=== PATIENT | female | born 1945 | race Caucasian/White ===

== ENCOUNTER 2024-02-23 07:15 | Day surgery (SDC) | payer OTHER, SELFPAY ==
[2024-02-14 08:01] VITALS: BMI 35.2
[2024-02-23] VITALS (24 sets, daily range): BP systolic 103–133; BP diastolic 55–80; PULSE 75–98; RESP 14–20; TEMP 35.7–36.9; O2SAT 90–98; BMI 34.4; BMI 38.3; BMI 37.3
--- NOTE | 2024-02-23 06:00 | DI.RAD.S_ITS ---
PROCEDURE: XR KNEE RT 1TO2V INDICATIONS: TKA TECHNIQUE: 2 view(s) of the knee acquired. COMPARISON: None. FINDINGS: Bones: Patient is status post knee joint arthroplasty. Hardware components are in expected positions. Visualized bony structures are intact. Soft tissues: Overlying postoperative changes are noted. IMPRESSION: Expected post-operative appearance of a knee arthroplasty. Dictated by: Chica Katz M.D. on 02/23/2024 at 12:56 Approved by: Chica Katz M.D. on 02/23/2024 at 12:56
--- NOTE | 2024-02-23 07:45 | SUR.OPER ---
Supine on padded OR bed. Pillow under head, arms secured on padded armboards <90 degree abduction. Safety belt across torso. Non-operative leg secured with tape over blanket over lower leg. Operative leg secured in DeMayo positioner. Foam padded brace at thigh of operative leg.
[2024-02-23] MEDS: ACETAMINOPHEN 325 MG TABLET 975 MG PO (08:01)
[2024-02-23] MEDS: CELECOXIB 200 MG CAPSULE PO (08:01)
--- NOTE | 2024-02-23 08:04 | PM.PREOP ---
Pre-operative Note Interval Note History & Physical reviewed/Exam performed by Physician: Yes Changes to H&P: No
--- NOTE | 2024-02-23 08:18 | P.OP_ITS ---
Operative Date/Time/Diagnoses Date of procedure: 02/23/24 Time of procedure: 09:00 Pre-op diagnosis: Right knee arthritis Post-op diagnosis: same Procedure & Clinicians Procedure: Total knee arthroplasty, right CPT code 03818 Robotic assisted surgery [id number] Computer navigation assisted surgery [id number] Same procedure as scheduled: Yes Indications: The patient is a 78 with end-stage [id number] right knee arthritis. The patient has a significant right knee arthritis. Condition was exacerbated after a knee dislocation sustained a industrial injury. They have failed conservative treatment with activity modifications, injections, physical therapy and bracing. They has been indicated for total knee replacement. The risks and benefits of the procedure have been discussed with the patient even opportunity to ask questions. The risks of surgery include but are not limited to infection, malunion, nonunion, fracture, loosening, persistence of pain, damage to nerves and blood vessels, need for additional procedures, DVT, PE, cardiopulmonary complications and . The patient expressed a thorough understanding of the risks and benefits of surgery and has elected to proceed. Consent was signed in the office. During the operation the services of physician surgical asst were medically indicated and necessary to provide the exposure of the operative site for the surgical procedure and to maintain the limb in a proper position to carry out the procedure safely and efficiently. Without a qualified computer lab assistant being present this would extend the operative procedure and would have made the procedure more technically difficult to perform. The surgical asst was medically necessary for the proper positioning, retraction and manipulation of the limb, proper exposure, and manipulation of the tissue for implantation implants and closure. Surgeon: Marni Marquez Reverberatory Furnace Operator: Junito Snider Anesthesia Type: General, Spinal and Local Operative Notes Findings: Tricompartmental knee arthritis full-thickness cartilage loss patellofemoral medial and lateral compartments. Large osteophytes. Right knee flattened trochlear groove. Complete eburnation of bone of the patellofemoral joint. Closure Type: primary Prosthetic devices, grafts, tissues, transplants, or devices: Licea and Nephew journey 2 bcs Femur cobalt chromium size 5 Tibia size 4 Patella 35 x 7.5 Poly 11 mm Estimated Blood Loss (mL): 30 Blood products transfused: none Tourniquet time (min): 75 Procedure in detail: Patient was seen in the preoperative area where the patient and site of surgery were identified in the operative knee was marked informed consent confirmed. This was the right knee. Patient received the appropriate preoperative antibiotics this was 2 g of Ancef. And other preoperative medications and was taken to the operating room placed on operating table in the supine position. Spinal anesthetic were administered. The operative extremity was then prepped and draped in the standard sterile fashion with a nonsterile tourniquet high on the thigh. Patient was placed on the green foam bolsters. A lateral post was placed at the level of the proximal thigh /trochanter area as a lateral post. Formal time-out procedure was performed confirming the patient's side and site of surgery and administration of appropriate preoperative antibiotics and implants were in the room accounted for. All were in agreement. Patient received a preoperative dose of tranexamic acid and then a 2nd dose at tourniquet release Patient was prepped and draped in the standard sterile fashion and the foot was placed into the leg rodríguez. This was taken into high flexion and the incision was marked out over the anterior knee to the level of the medial tubercle tubercle. The Esmarch was then used for exsanguination and the tourniquet was inflated to 250 mmHg. Was made through the skin and subcutaneous tissue in high flexion this was then brought down into 30? of flexion for the medial parapate llar arthrotomy. A marker pen was used to steffany the arthrotomy site for later repair. Joint fluid was evacuated. The anterior osteophytes and soft tissues were removed. Routine medial release was initially made along the medial proximal tibia with Bovie. The patella was 1st cut using the saw sized and prepped and then subluxed throughout the case and protected. The leg was then taken into extension and the patella was everted and the patella was cut to accommodate the patellar button. This was sized to a 35 mm button for a 7.5 mm thickness to recreate the original dimensions of the patella. Poly was removed and the protector replaced and the patella was subluxed and the knee was taken back up into flexion and attention was returned to the femur. Then the rotational landmarks of Whitesides line and the trans epicondylar axis were marked on the femur with electrocautery. ACL and PCL were released. Then the Cori robotic pins were placed into the femur and tibia and the trackers set up. Landmarks were established and the robotic planning was commenced. Plan was developed and improved and adjusted as necessary to create a balanced knee. Preoperative alignment was 0? postoperative alignment was planned for 0?. External rotation of the distal femur 5? was used for balancing and tracking. And the knee was balanced with resections the 1-2 mm medial and lateral compart ments. Plan was satisfactory the bur was used to remove the distal femur Attention was then turned to the tibia and the tibial resection was made in accordance with the robotic planning. Then the 5 in 1 cutting block for the distal femur was used. The trials were placed. And the femoral notch was cut a standard fashion using Reamer then slap hammer. The knee was trialed and the checked. Knee was balanced in flexion extension. Range of motion 0-135 degrees was obtained. The rotation femoral trial was marked Bovie on the bone and checked with a long hailey. The tibia was then finished with a drill and flange cut and then The trial implants were removed. Then in extension the posterior capsule was injected with a mixture of 40 mL of 0.25% Marcaine and 20 mL of Exparel 266 mg, care was taken to avoid excessive injection posterior laterally. The remainder of this was saved for the capsule and subcutaneous tissue and placed during cement curing. The wound and bone was irrigated with pulsatile lavage. This was then dried with a sponge. The components were verified and opened and the cement was mixed. Cement was applied to the components and then to the bone then the tibia was cemented in place 1st followed by the femur then the patella. Excess cement was removed. With care looking around the back of the knee. Remainder of the injection was injected around the capsule. trial poly was placed back in the leg was placed into extension for the patellar cementing. After this was cured approximately 15 minutes later and the dilute Betadine solution was placed for at least 3 minutes in the wound this was then irrigated out and the final poly was placed. This was a 11 mm poly. The tourniquet was released hemostasis was achieved. Final 1g of tranexamic acid was given IV at the time of tourniquet release. The capsule was closed with 1. Ethibond suture. Followed by a running Quill stitch. Subcutaneous layer was closed with 3-0 Vicryl suture. Skin was closed with a running V lock suture Stratafix Monocryl type suture and Dermabond. An Aquacel dressing was placed . An Jesse wrap was applied. Anesthetic was terminated the patient was woken from anesthesia and taken to recovery room in good condition. There no immediate complications from this procedure. The patient will be maintained on a standard total knee replacement protocol with weight-bearing as tolerated. Complications: none Post-operative Condition: stable Disposition: PACU Plan for aftercare: Standard postop total knee instructions. Weightbear as tolerated. Use assistive devices. Aspirin 81 mg b.i.d. for DVT prophylaxis x6 weeks. Follow u p in [facility]opedic [facility] in 2 weeks for wound check. We will commence physical therapy outpatient within 1 week.
[2024-02-23] MEDS: LACTATED RINGERS 1,000 ML 42 ML IV (08:27)
--- NOTE | 2024-02-23 08:42 | SUR.PREOP ---
Block start time 0837 . Monitoring initiated and maintained throughout procedure. Oxygen and medications given per anesthesiologist instructions. Patient remained stable throughout procedure, no adverse reactions noted. Block end time 0840.
[2024-02-23] MEDS: TRANEXAMIC ACID 1,000 MG VIAL 2000 MG INJ ×2 (09:05→10:41)
[2024-02-23] MEDS: CEFAZOLIN 2 GM/100 ML PREMIX 100 ML IV ×2 (09:10→16:29)
[2024-02-23] MEDS: BUPIVACAINE LIPOSOME 266 MG/20 ML VIAL INJ (09:27)
[2024-02-23] MEDS: BUPIVACAINE 0.25% W/ EPI 30 ML VIAL 60 ML INJ (09:28)
[2024-02-23] MEDS: ONDANSETRON 4 MG/2 ML INJ IV ×2 (11:39→15:35)
[2024-02-23] MEDS: HYDROCODONE/ACET 5/325 TABLET 1 TAB PO ×2 (12:36→13:20)
[2024-02-23] MEDS: LORazepam 2 MG/ML INJ 0.5 MG IV (12:52)
[2024-02-23] MEDS: fentaNYL 100 MCG/2 ML INJ IV (13:52)
--- NOTE | 2024-02-23 14:07 | SUR.PHASEII ---
Patient reported 7/10 posterior knee pain. Medicated with Fentanyl. Continuous pulse ox in place. Patient reported feeling hot, mildly diaphoretic. BP stable. Temp 97.2.
--- NOTE | 2024-02-23 14:35 | PT.IIE ---
Current Diagnoses Unilateral primary osteoarthritis, right knee (02/23/24) Unspecified dislocation of right patella, subsequent encounter (02/23/24) Surgery Performed Operation Date: 02/23/24 08:45 Actual Procedures p Total Knee Arthroplasty - Robot(Right) - Marni Marquez MD Surgical History (Last Updated 02/14/24 @ 09:29 by Deirdre Tineo, RN) History of ankle surgery (2023) History of bunionectomy of both great toes History of total left knee replacement (~2016) Hx of bilateral cataract extraction (2023) Hx of cholecystectomy (~2000) Hx of LASIK Hx of lithotripsy Hx of tonsillectomy Medical History (Last Updated 02/14/24 @ 09:29 by Deirdre Tineo, RN) Anesthesia complication Depression Diverticulosis Eczema History of COVID-19 (~2020) Mild aortic stenosis Osteoarthritis Physical Therapy Inpatient Evaluation/Re-Eval M1 PT/OT-IP Prior Functional Status Start: 02/23/24 16:49 Freq: NEEDED Status: Active Protocol: Document 02/23/24 14:35 AB (Rec: 02/23/24 17:02 AB [id number]) Medical Review Prior Functional Status Medical History Reviewed Yes Communication able to make needs known Mobility and Gait pt stated that she was indpeendent with all mobiltiies and ambulationf without AD Social History Household Members none Living Arrangements House Number of Floors (Floors) One Floor Number of Stairs To Enter/Railing? 7 steps wide bilateral rails to enter and can only hold on to one rail at a time Home Environment Standard Height Toilet,Walk in Shower,Built-In Shower Seat Home Equipment Front Wheel Walker,Raised Toilet Seat Without Armrests, Hand Held Shower,Grab Bars In Shower Additional Social History Comment pt's brother and hkwhnt-ke-hit plans to stay with pt to assist as long as needed. pt's vzrjen-ie-eed will be assisting pt M2 PT-IP Current Condition Start: 02/23/24 16:49 Freq: NEEDED Status: Active Protocol: Document 02/23/24 14:35 AB (Rec: 02/23/24 17:02 AB [id number]) Physical Therapy Current Condition Current Condition Evaluation Date 02/23/24 Treatment Diagnosis s/p R TKA; difficulty in walking Onset Date 02/23/24 M3 PT-IP Subjective Start: 02/23/24 16:49 Freq: NEEDED Status: Active Protocol: Document 02/23/24 14:35 AB (Rec: 02/23/24 17:02 AB [id number]) Subjective Physical Therapy Visit Type Type Initial Evaluation Visit Start Time 14:35 Visit Stop Time 15:25 Number of FILAMENT MAKER Visits 0 Physical Therapy Visit Comments Patient Comments c/o increase pain Therapy Pain Assessment Pain When Pain Assessed At Rest Pain Present Pain Present Pain Reported Location Right Knee Intensity 5 Scale Used increases 10/10 with movement Pain Behaviors Facial Grimacing,Guarding, Holding Area Pain Management Techniques Apply Cold,Distraction, Elevation,Modification of Treatment,Re-positioning, Timing of Activity with Medications M4 PT-IP Mobility and Gait Start: 02/23/24 16:49 Freq: NEEDED Status: Active Protocol: Document 02/23/24 14:35 AB (Rec: 02/23/24 17:02 [id number]) PT-Bed Mobility Assessment Supine to Sit Supine to Sit Maximum Assistance,1 Person Assistance,Bedrails Sit to Supine Sit to Supine Maximum Assistance,1 Person Assistance,Bedrails Scooting Scooting to Edge of Bed Maximum Assistance PT-Transfer Assessment Sit to and From Stand Sit to and from Stand Maximum Assistance,1 Person Assistance,Use of Upper Extremities Equipment Transfer Assistive Device Gait Belt,Front Wheeled Walker Orthotic/Prosthetic Devices or Brace: No Comments Mobility Comments pt seen in PACU supine in bed. pt c/o increase R knee pain. nurse with pt. nurse stated that pt had pain meds. pt still c/o increase knee pain and worried about moving. nurse stated that the plan is still going home after PT. obtained PLOF and home set up from pt. family in with pt. BP checked: 113/71 O2 sat:99% pt completed supine to sit max A and max cues. educated pt' s JUAQUIN on how to assist pt. pt able to sit on EOB SBA. c/o increase pain and c/o nausea and sweaty. BP checked: 110/ 78. completed sit to stand max A and max cues. pt not putting much weight on RLE and unable to take any steps and c/o increase pain needing to sit back on bed. pt requested to lay back down needing max A for sit to supine. positioned pt in bed. call light within reach. informed nurse regarding pt's mobility and c/o increase knee pain. Gait Assessment Comments Gait Comments unable at this time PT-Balance Assessment Sitting Balance and Reactions Static Sitting Balance Ability Good Dynamic Sitting Balance Ability Good Standing Balance and Reactions Static Standing Balance Ability Poor Dynamic Standing Balance Ability Poor Device Used FWW M5 PT-IP Objective Assessments Start: 02/23/24 16:49 Freq: NEEDED Status: Active Protocol: Document 02/23/24 14:35 AB (Rec: 02/23/24 17:02 [id number]) Orientation Orientation/Cognition Level of Alertness Alert Orientation Name,Place,Situation Language Function Ability No Deficits Noted Safety Awareness Decreased Safety Awareness Memory Description No Deficits Noted Gross Range of Motion Lower Extremity ROM Impairments R knee flexion: ~ 60 deg R knee extensioN: ~ 20 deg less to 0 Strength Lower Extremity Strength Assessment Right Impaired Hip 3+/5 Knee 3+/5 Coordination Assessment Gross Coordination Gross Coordination WNL Sensation Assessment Sensation Gross Sensation WNL Muscle Tone Muscle Tone WNL Yes M6 PT-IP Treatment Start: 02/23/24 16:49 Freq: NEEDED Status: Active Protocol: Document 02/23/24 14:35 AB (Rec: 02/23/24 17:02 [id number]) Physical Therapy Treatment Exercises Exercises Heel Slides Education Education Provided Precautions,Weight Bearing Status,Post-Op Packet,Safety M7 PT-IP Assessment and Plan Start: 02/23/24 16:49 Freq: NEEDED Status: Active Protocol: Document 02/23/24 14:35 AB (Rec: 02/23/24 17:02 [id number]) PT Summary Assessment and Plan Potential Rehabilitation Potential Fair Status of Condition at Evaluation Evolving Summary Impairments Pain,ROM,Strength,Balance, Coordination,Sensation,Tone, Cognition,Bed Mobility, Transfers,Gait,Activity Tolerance Assessment Summary pt is a 78 y/o F s/p R TKA POD 0. pt is WBAT on RLE. pt requiring max A for bed mobility and sit to stand and unable to ambulate at this time. pt with c/o increase R knee pain and unable to tolerate much activity. pt plans to go home and her JUAQUIN will assist her. d/c plan depending on progress. will conduct caregiver training when appropriate. will continue to assess. Goals Bed Mobility Goal Standby Assistance Transfer Goal Standby Assistance,Front Wheeled Walker Gait Goal Standby Assistance,Front Wheel Walker Gait Distance 50 Other Goals improve bed mobility, transfers, ambulation using FWW ~ 200 ft mod I up/down 7 steps 1 rail SBA Days to Meet Goals 5 Frequency of Treatment Frequency Of Treatment Twice a Day Treatment Plan Physical Therapy Treatment Plan Bed Mobility Training,Transfer Training,Gait Training, Therapeutic Exercise,Balance Retraining,Post Op Education, Discharge Planning,Hot or Cold Pack,Neuromuscular Re-ed, Coordination Retraining,Manual Therapy Weight Bearing Status Weight Bearing Status Weight Bear as Tolerated Allowed Weight Bearing Amount (enter % RLE WBAT or #) (%) Recommendations To Nursing Amount of Assist Needed 2 Person Assist Discharge Recommendations PT Discharge Recommendations Home with 31/08 Assist Available,Home Health,SNF Rehab,Home vs SNF Transportation Needs at Discharge Wheelchair/Cabulance
[2024-02-23] MEDS: hydrOXYzine HCL 25 MG TABLET PO (14:42)
--- NOTE | 2024-02-23 14:50 | SUR.PHASEII ---
Patient reported knee pain increasing. Medicated with vistaril.
--- NOTE | 2024-02-23 15:27 | SUR.PHASEII ---
Patient did not pass PT. Dr. Marquez notified.
--- NOTE | 2024-02-23 15:32 | SUR.PHASEII ---
Report called to Vesna Leggett
--- NOTE | 2024-02-23 15:40 | SUR.PHASEII ---
Patient c/o nausea. Medicated with Zofran. Declined Queazease.
--- NOTE | 2024-02-23 16:01 | SUR.PHASEII ---
Patient transferred to the floor with belongings bags x2 and walker. Bedside report given to Jazzy DUMONT stable. Right Knee Dressing CDI.
[2024-02-23] MEDS: HYDROMORPHONE 2 MG TABLET PO ×2 (16:29→22:04)
[2024-02-23] MEDS: LACTATED RINGERS 1,000 ML 100 ML IV (16:30)
--- NOTE | 2024-02-23 17:46 | PC.NURSE ---
Pt to room 204 via bed from PACU. Pt is awake, alert, and oriented. Denies nausea (received Zofran from PACU just prior to coming upstairs), denies shortness of breath but states she is having pain to her right knee 4-5/10. Repositioned Pt in bed, placed ice packs on surgical area, and provided pain medication-reassessed and Pt stated pain was much better. Pt IVF infusing as ordered, SCD's on and running, Bed alarm on for safety. Pt oriented to room, call light, bed controls, and tv controls. Pt agrees to call for assistance as needed and to not get up without assistance.
[2024-02-23] MEDS: ACETAMINOPHEN 325 MG TABLET 650 MG PO (18:13)
[2024-02-23] MEDS: HYDROMORPHONE 0.5 MG INJ IV (19:48)
[2024-02-23] MEDS: SPIRONOLACTONE 25 MG TABLET 100 MG PO (21:15)
[2024-02-23] MEDS: ASPIRIN EC 81 MG TABLET PO (21:16)
[2024-02-23] MEDS: ESCITALOPRAM 10 MG TABLET PO (21:16)
[2024-02-23] MEDS: DOCUSATE 100 MG CAPSULE PO (21:16)
[2024-02-23] MEDS: lisinopriL 10 MG TABLET PO (21:16)
[2024-02-24] MEDS: ACETAMINOPHEN 325 MG TABLET 650 MG PO ×2 (00:47→08:40)
[2024-02-24] MEDS: CEFAZOLIN 2 GM/100 ML PREMIX 100 ML IV (00:48)
[2024-02-24] MEDS: HYDROMORPHONE 2 MG TABLET PO ×4 (02:00→13:53)
[2024-02-24 02:50] VITALS: BP 108/60; PULSE 79; RESP 16; TEMP 36.7; O2SAT 93
[2024-02-24 06:14] LABS: Hematocrit 32.7 % (36-46); Hemoglobin 10.9 g/dL (12.0-16.0)
--- NOTE | 2024-02-24 07:49 | PM.DS.1 ---
History of Present Illness History of Present Illness Chief complaint: Right Total Knee Arthroplasty - Robot Narrative: Jania is a pleasant 78 year old female who is POD#1 s/p R TKA by Dr. Marquez. This morning she reports she is doing okay overall but is having a lot of pain still, despite this she states she would still like to d/c to home today if possible. She does live alone at home but her brother and fragbj-wc-vku live in [place] and will stay nearby to provide assistance as needed. She has prescription for hydrocodone at home already. She states she does not tolerate oxycodone well. She has concerns about pain control after discharge as she is currently getting Dilaudid. Has postop PT set up with [facility]. She has been urinating well without issue. She has been out of bed, she has seen PT already once yesterday. Denies fever, chills, chest pain, SOB, nausea, vomiting. Denies feelings of lightheadedness or dizziness. Denies history of blood clots. Operative Date/Time/Diagnoses Date of procedure: 02/23/24 Time of procedure: 09:00 Pre-op diagnosis: Right knee arthritis Post-op diagnosis: same Procedure & Clinicians Procedure: Total knee arthroplasty, right CPT code 21241 Robotic assisted surgery [id number] Computer navigation assisted surgery 29822 Same procedure as scheduled: Yes Indications: The patient is a 78 with end-stage [id number] right knee arthritis. The patient has a significant right knee arthritis. Condition was exacerbated after a knee dislocation sustained a industrial injury. They have failed conservative treatment with activity modifications, injections, physical therapy and bracing. They has been indicated for total knee replacement. The risks and benefits of the procedure have been discussed with the patient even opportunity to ask questions. The risks of surgery include but are not limited to infection, malunion, nonunion, fracture, loosening, persistence of pain, damage to nerves and blood vessels, need for additional procedures, DVT, PE, cardiopulmonary complications and . The patient expressed a thorough understanding of the risks and benefits of surgery and has elected to proceed. Consent was signed in the office. During the operation the services of physician surgical supplies sterilizer were medically indicated and necessary to provide the exposure of the operative site for the surgical procedure and to maintain the limb in a proper position to carry out the procedure safely and efficiently. Without a qualified baking assistant being present this would extend the operative procedure and would have made the procedure more technically difficult to perform. The surgical supplies sterilizer was medically necessary for the proper positioning, retraction and manipulation of the limb, proper exposure, and manipulation of the tissue for implantation implants and closure. Surgeon: Marni Marquez Mechanical Process Engineer: Junito Snider Anesthesia Type: General, Spinal and Local Operative Notes Discharge Providers Provider Discharge Date: 02/24/24 Primary care physician: Manish Keller DO Consults: 02/23/24 06:00 Consult to Anesthesiology Routine Comment: Consulting Provider: Anesthesiologist Reason for consultation: Regional block for post operative pain control 02/23/24 11:28 Consult to Physical Therapy Evaluate & Treat Comment: Postop total knee replacement same-day surgery Physician Instructions: Evaluate and Treat 02/23/24 15:49 Consult to Discharge Planning Routine Comment: Consult to Occupational Therapy Evaluate & Treat Comment: Physician Instructions: Evaluate and treat Consult to Physical Therapy Evaluate & Treat Comment: Physician Instructions: postop TKA protocol Discharge provider: Rossy Katz PA-C Summary Hospital Course Discharge Diagnosis: Stable status post right total knee arthroplasty Hospital Course: Relatively uncomplicated hospital course Exam Vital Signs (past 8 hours): - 02/24/24 02:50 Temperature 98.0 F Pulse Rate 79 Respiratory Rate 16 Blood Pressure 108/60 Pulse Oximetry 93 Oxygen Flow Rate 0 Oxygen Delivery Method Nasal Cannula Oxygen Flow Rate 0 Narrative Exam Narrative: Patient lying in bed during our interview today. Appears comfortable at rest but grimmaces w/ pain w/ palpation of the knee. No acute distress. AOx3. Grossly normal alignment of the RLE with moderate swelling to the right knee. 5/5 strength with DF, PF, EHL. Able to flex and extend knee slightly but very limited ROM d/t pain. Gross sensation intact throughout bilateral lower extremities. Calves soft and compressible bilaterally. SCDs are on and functioning. Brisk capillary refill. Post-surgical dressing clean, dry and intact over the right knee without drainage. Objective Labs 02/24/24 06:01 Labs: Laboratory Results - last 24 hr 02/24/24 06:01 Hgb 10.9 L Hct 32.7 L PFSH Medical History (Updated 02/14/24 @ 09:29 by Deirdre Tineo RN) History of COVID-19 (~2020) Depression Eczema Osteoarthritis Diverticulosis Anesthesia complication Mild aortic stenosis Surgical History (Updated 02/14/24 @ 09:29 by Deirdre Tineo RN) History of bunionectomy of both great toes History of ankle surgery (2023) Hx of tonsillectomy Hx of lithotripsy Hx of cholecystectomy (~2000) Hx of bilateral cataract extraction (2023) Hx of LASIK History of total left knee replacement (~2016) Social History household members: none Smoking Status: Former smoker alcohol intake: current Discharge Assessment & Plan Assessment and Plan Plan of Treatment: 1) Plan to discharge to home today with brother/JUAQUIN pending PT evaluation and improved pain control. 2) Continue multimodal pain management with ice to the knee for additional pain control. We discussed I do not prescribe outpatient Dilaudid, patient states understanding and would still like to d/c today if her pain improves later this afternoon. 3) ASA b.i.d. for DVT prophylaxis. 4) Start outpatient physical therapy to work on range of motion and mobility. Would appreciate CM assistane w/ setting up some HH PT as well for her first few PT sessions as she has limited transportation support. 5) Keep dressing intact, clean, dry until 2 week postop appointment. No soaking the incision site in pools or tubs. No topical ointments or creams to the incision site. 6) Follow up at [facility] in 2 weeks for a postop appointment and wound check. All patient's questions were answered, she demonstrates understanding and is in agreement with the plan. Call our office if any questions or concerns arise. Discharge Plan Discharge Plan Patient Disposition: Home Discharge orders & Medications Discharge Orders: Discharge (Order); Ordered 02/24/24 Ordered By: Rossy Katz Prescriptions: Continued aspirin 325 mg Tablet 325 mg PO DAILY acetaminophen 500 mg Tablet 1,000 mg PO Q6H PRN (Reason: Pain) lisinopril 10 mg Tablet 10 mg PO BEDTIME spironolactone 50 mg Tablet 100 mg PO BEDTIME escitalopram oxalate [Lexapro] 10 mg Tablet 10 mg PO BEDTIME semaglutide (weight loss) 0.5 mg/0.5 mL Pen Injector 0.5 mg SUBCUT QWEEK Patient Comments: Injects every Wednesday Follow up/Referrals: Marni Marquez MD [Physician] - 03/07/24 11:30 am (appt:03/07@ 11:30 with Hannah VIDES @ [facility] ) Manish Keller, DO [Primary Care Provider] - Diet/Activity/Treatments Diet: Diet as Tolerated Other treatments: Dressing/Wound care: -Remove the Jesse wrap 48 hours after surgery. -Keep Aquacel dressing in place until postoperative follow-up office visit. -you may see some drainage on the bandage, this is ok. If it is leaking or saturated, then the dressing can be changed to clean gauze or a clean surgical dressing from a pharmacy or reinforced with additional gauze and paper tape or dressings over the top. Otherwise, just keep dressing in place until follow up. -Okay to shower. Keep wound out of direct water stream. No soaking or submerging until all the scabs fall off (approximately 6 weeks). -Please call the office if dressing becomes significantly wet, soiled, or saturated. Activities: -Weight-bearing as tolerated. Use front wheeled walker, and progress to cane when safe. -Continue with home exercises as directed by your physical therapist. -Elevate ?toes above the nose if you have significant swelling in your lower leg. (A wedge pillow is easiest.) -Ice your incision as needed for pain/inflammation/swelling. Protect your skin with a folded pillowcase. Follow-up: -Follow-up with your surgeon or PA in the office in 10-14 days after surgery. -Follow-up with your surgeon 6 weeks postoperatively. Call the office if you have chest pain, shortness of breath, significant swelling that will not resolve with elevating, fever over 101?, significantly worsening pain. [facility]: [phone] You have been discharged with medications. These have already been sent to your pharmacy. Pain include pain medications: Oxycodone take 5 mg orally every 4 hours as needed for pain. If your pain is more severe you may take up to 2 or a maximum 3 pills (15 mg) every 4 hours for pain. Take the smallest dose necessary.--may have been given hydrocodone/acetaminophen or hydromorphone as a pain medication site of oxycodone. Take pain medication were prescribed. If these are working for you may call the office business hours to discuss your pain management alternative medications. Narcotic medication can make you feel constipated. You can get rnlm-wye-qfaqzyv stool softener such as docusate sodium-Colace at a pharmacy to help with this. You may also have prescriptions for ibuprofen 800 mg take this 3 times a day for least the 1st 10 days after surgery to help with pain control. (or an alternative anti-inflammatory) And acetaminophen (Tylenol) take 500-1000 mg 3 times a day for pain control. You also have a prescription for Zofran (ondansetron) this is a strong anti nausea medication that can be taken up to every 8 hours as needed for nausea Additionally will take a baby aspirin 81 mg twice a day (morning and night) to help prevent blood clots If you have been discharged with ketorolac (toradol) this is a strong anti-inflammatory, do not take ibuprofen/meloxicam/mortin or other NSAIDS while on ketorolac. Once your ketorolac prescription is finished, you may restart taking other NSAIDs again. narcotic pain medication, tylenol and aspirin are fine to continue while on ketorolac. --your prescribed postoperative medications that your preoperative clinic appointment. These were sent to your pharmacy of choice. You may restart your semaglutide at the next scheduled dosing after surgery. Skin/Wound/Dressing Care Report to your healthcare provider any signs of infection, such as:: chills, fever, night sweats, increased pain, unusual drainage and unusual redness Visit Report/Discharge Packet Instructions: DI for Knee Replacement, DI for Prescription Opioid Use Stand Alone Forms: Patient Portal/API Discharge Data Primary Care Provider: Manish Keller Attending Provider: Marni Marquez VTE Deep Vein Thrombosis/Pulmonary Embolism Present on Admission: No
[2024-02-24 08:00] VITALS: BP 110/57; PULSE 81; RESP 14; TEMP 35.8; O2SAT 92
[2024-02-24] MEDS: DOCUSATE 100 MG CAPSULE PO (08:40)
[2024-02-24] MEDS: ASPIRIN EC 81 MG TABLET PO (08:41)
--- NOTE | 2024-02-24 08:57 | PT.IPTN ---
Current Diagnoses Unilateral primary osteoarthritis, right knee (02/23/24) Unspecified dislocation of right patella, subsequent encounter (02/23/24) Surgery Performed Operation Date: 02/23/24 08:45 Actual Procedures p Total Knee Arthroplasty - Robot(Right) - Marni Marquez MD Physical Therapy Treatment Note M2 PT-IP Current Condition Start: 02/23/24 16:49 Freq: NEEDED Status: Active Protocol: Document 02/23/24 14:35 AB (Rec: 02/23/24 17:02 AB [id number]) Physical Therapy Current Condition Current Condition Evaluation Date 02/23/24 Treatment Diagnosis s/p R TKA; difficulty in walking Onset Date 02/23/24 M3 PT-IP Subjective Start: 02/23/24 16:49 Freq: NEEDED Status: Active Protocol: Document 02/24/24 08:02 MB (Rec: 02/24/24 08:57 MB [id number]) Subjective Physical Therapy Visit Type Type Treatment Note Visit Start Time 08:02 Visit Stop Time 08:45 Number of RESTAURANT OPERATIONS MANAGER Visits 0 Physical Therapy Visit Comments Patient Comments Pt with many complaints about not sleeping, people checking in on her every hour and her wishing to sleep in and work later. Pt states that her right knee is not bothering her as much when it is dangling down off the bed as found. Pt with complaints throughout treatment, disagreeing with most simple functional cues from PT to push up from the bed, how to use rail with steps after PT demo, asking what she is doing after PT and nsg encourage her that she will be getting up to the recliner for breakfast and to talk with JUAQUIN . Therapy Pain Assessment Pain When Pain Assessed During Mobility Pain Present Pain Present Pain Reported Location Right Knee Intensity 4 M4 PT-IP Mobility and Gait Start: 02/23/24 16:49 Freq: NEEDED Status: Active Protocol: Document 02/24/24 08:02 MB (Rec: 02/24/24 08:57 MB [id number]) PT-Bed Mobility Assessment Supine to Sit Supine to Sit Standby Assistance Scooting Scooting to Edge of Bed Standby Assistance PT-Transfer Assessment Sit to and From Stand Sit to and from Stand Standby Assistance,Contact Guard Assistance Equipment Transfer Assistive Device Gait Belt,Front Wheeled Walker Orthotic/Prosthetic Devices or Brace: No Transfers Transfer Destination Chair,Wheelchair Transfer Technique Stepping Transfer Ability Level of Assist Standby Assistance Comments Mobility Comments PT places looped gait belt around right foot and pt is able to use it to help scoot leg to the left to get OOB the direction she gets OOB at home. Pt attempts to stand with both hands on walker and pt gently cued to push up from the bed and pt disagrees with PT about this and PT provides instruction about fall risk when pushing up from wheeled walker. Pt does a better job pushing up from w/c and reaching back for chair with second and third transfers this date. Gait Assessment Gait Gait Assistance Required: Standby Assistance,1 Person Assist Distance (Feet) 20 Able to Maintain Weight Bearing Status Yes During Gait Assistive Devices Assistive Device Gait Belt,Front Wheeled Walker Orthotic/Prosthetic Devices or Brace: No Gait Deviations General Gait Pattern Antalgic,Decreased Stride Length,Decreased Feet Clearance,Step-to Gait,Wide Based Gait Factors Limiting Gait Function Factors Limiting Gait Function Decreased Strength,Difficulty Following Directions,Limited Range of Motion,Pain Comments Gait Comments 20'x1, 5'x2, 3'x1 gait with RW Stair Climbing Assessment Evaluation Level of Assist On Stairs Contact Guard Assistance,1 Person Assistance Devices Stair Climbing Assistive Devices Right Railing Technique/Endurance Stair Climbing Direction Ascend and Descend Stair Climbing Technique Step to Step Number of Steps Climbed 2 Stair Climbing Set # Repetitions (reps) 1 Comments Stair Climbing Comments PT demos step-to gait facing right rail ascend with both hands on rail and then pt performs after demonstration and discussion. Pt with some anxiety and apprehension and tends to auto clutch rebuilder rail with hands and forearms resting and cues for hand placement to help. 2 steps performed only d/t pt presentation. PT-Balance Assessment Sitting Balance and Reactions Static Sitting Balance Ability Good Dynamic Sitting Balance Ability Good Standing Balance and Reactions Static Standing Balance Ability Good Dynamic Standing Balance Ability Fair Device Used RW M5 PT-IP Objective Assessments Start: 02/23/24 16:49 Freq: NEEDED Status: Active Protocol: Document 02/23/24 14:35 AB (Rec: 02/23/24 17:02 AB [id number]) Orientation Orientation/Cognition Level of Alertness Alert Orientation Name,Place,Situation Language Function Ability No Deficits Noted Safety Awareness Decreased Safety Awareness Memory Description No Deficits Noted Gross Range of Motion Lower Extremity ROM Impairments R knee flexion: ~ 60 deg R knee extensioN: ~ 20 deg less to 0 Strength Lower Extremity Strength Assessment Right Impaired Hip 3+/5 Knee 3+/5 Coordination Assessment Gross Coordination Gross Coordination WNL Sensation Assessment Sensation Gross Sensation WNL Muscle Tone Muscle Tone WNL Yes M6 PT-IP Treatment Start: 02/23/24 16:49 Freq: NEEDED Status: Active Protocol: Document 02/23/24 14:35 AB (Rec: 02/23/24 17:02 AB [id number]) Physical Therapy Treatment Exercises Exercises Heel Slides Education Education Provided Precautions,Weight Bearing Status,Post-Op Packet,Safety M7 PT-IP Assessment and Plan Start: 02/23/24 16:49 Freq: NEEDED Status: Active Protocol: Document 02/24/24 08:02 MB (Rec: 02/24/24 08:57 MB [id number]) PT Summary Assessment and Plan Potential Rehabilitation Potential Fair Status of Condition at Evaluation Evolving Summary Impairments Pain,ROM,Strength,Balance, Coordination,Sensation,Tone, Bed Mobility,Transfers,Gait, Activity Tolerance Progress Towards Goals Progressing Toward Goals Assessment Summary Pt progresses with bed mobility, transfers, gait and steps today. Pt is agitated throughout treatment and makes continuous shrap remarks to PT throughout treatment and disagrees with simple functional commands throughout bed mobility, transfers, gait and steps. Pt to d/c home today with family member assistance. She is A&O and should have no trouble communicating practiced functional mobility skills with family today. She states she has also performed these tasks with OPPT pre-op. No further acute PT needs and d/c PT. Recommend family assist at d/c and ongoing PT and pt wishes to go to outpatient in [facility] where she lives. She states she expects the hospital to set this up as she was told this. Goals Bed Mobility Goal Standby Assistance Transfer Goal Standby Assistance,Front Wheeled Walker Gait Goal Standby Assistance,Front Wheel Walker Gait Distance 50 Other Goals improve bed mobility, transfers, ambulation using FWW ~ 200 ft mod I up/down 7 steps 1 rail SBA Days to Meet Goals 5 Frequency of Treatment Frequency Of Treatment Discharge Treatment Plan Physical Therapy Treatment Plan Bed Mobility Training,Transfer Training,Gait Training, Therapeutic Exercise,Balance Retraining,Post Op Education, Discharge Planning,Hot or Cold Pack,Neuromuscular Re-ed, Coordination Retraining,Manual Therapy Weight Bearing Status Weight Bearing Status Weight Bear as Tolerated Allowed Weight Bearing Amount (enter % RLE WBAT or #) (%) Recommendations To Nursing Amount of Assist Needed Standby Assistance Discharge Recommendations PT Discharge Recommendations Home with 31/08 Assist Available,Outpatient PT Transportation Needs at Discharge Private Vehicle
--- NOTE | 2024-02-24 09:26 | CM.DANOTE ---
Initial DCP Assessment Visit Note Reviewed EMR and team rounds for status updates. Met with pt at bedside to introduce self and role, pt was found to be alert/oriented, able to discuss her concerns and plan for home d/c and postoperative recovery care. Pt resides independently at baseline in her own home in [place]. Her brother and [id number] will be providing for her care post d/c, and will also be transporting her home later this morning. Payor: [employer] Attending: Dr. Marquez Pt is a 78 year-old F post-op day 1 from a R-knee total arthroplasty surgery. She has a hx of worsening and debilitating R-knee pain that has significantly impacted her ability to do her daily ADL's, and has decreased quality of life as a result. She has tried conservative efforts at pain control with no lasting benefit. Per PT, she did well and was able to manage stair climbing in preparation for d/c. Pt expressed concerns to this SYSTEM SALES CONSULTANT that she had OP PT scheduled through [facility], however she does live alone and is requesting a referral to Home Health instead. SYSTEM SALES CONSULTANT sent referral to [facility] , per her request. No further CM assistance or resource needs are indicated at this time. Discharge Planning/Care Management CM Discharge Assessment Start: 02/24/24 09:17 Freq: Status: Active Protocol: Document 02/24/24 09:17 DPL (Rec: 02/24/24 09:26 DPL [id number]) Discharge Planning Assessment Assigned Desizing Machine Operator Head End RAISA Byrnes Advance Directives? Yes Advance Directives on File No History Provided By Patient,Medical Record Has Patient been admitted in last 30 No days? Prior Living Arrangements House Household Members none Type of transporation used prior to Drives own vehicle admit Independent with ADL's Yes Is patient alert and oriented? Yes Comment N/A Caregiver for Another No DME Already Rented / Owned Bath Bench,Elevated Toilet Seat,FWW / Walker Comment Pt was independent with no AD prior to surgery. Patient/Family Preference OP PT Therapy Barriers to Discharge No Discharge Plan Home Community Services Physical Therapy Transportation Arrangement Brother Referrals Initiated None needed If patient plan is home with home health No : Has signed face to face form been completed? Whiteboard Updated in Patient Room with Yes name and ext. # of Desizing Machine Operator Head End Review Status In Process Please Provide Date Initial DC 01/16/25 Assessment Was Performed Pre-Anesthesia Assessment Start: 02/14/24 08:01 Freq: Status: Active Protocol: Document 02/14/24 08:01 [facility] (Rec: 02/14/24 08:12 [facility] [id number]) Pre-Anesthesia Assessment PAC Comment Phone assessment Patient Information Reviewed Via Phone Assessment Assessment Completed With Patient Diagnostic Results BMP/CMP,EKG Comment Outside labs/EKG scanned Primary Care Provider Manish Keller Comment Clearance form x 2 scanned and in surgery folder Seen Specialist in Last 12 Months Yes Specialist Seen Orthopedist Primary Language Khmer Lead Technical Architect Required No Height 170.18 cm Weight 102.058 kg Body Mass Index (BMI) 35.2 Hearing Ability Normal Visual Assist Magnifying Glass Dentition Type Teeth, Natural Present Barriers to Learning None Hx Anesthesia Reactions Yes: PONV Hx Family Anesthesia Reaction No Hx Malignant Hyperthermia No Hx Blood Transfusions No Anesthesia Review Requested No Buffer Machine No alcohol intake current alcohol intake frequency holidays/special occasions only Smoking Status Former smoker how long ago did patient quit smoking Quit in her 40's Substance Use Type [#R] does not use Pain Present Pain Reported Musculoskeletal Symptoms Abnormal Gait,Difficulty Walking,Joint Pain History of Falling (Recent or History of No ) Patient is completely paralyzed or No completely immobile Prosthesis or Orthotic Device Cane,Front Wheel Walker Mental Status Oriented to own ability Is patient on oxygen? No Does patient have SWARTZ/SOB No Hx Sleep Apnea No Currently Taking a Beta Kobe No Can You Climb a Flight of Stairs Without Yes SOB Hx Chest Pain No Hx SOB No Hx Syncope or Dizziness No Anti-Coagulant Therapy No Has a Engine Test Cell Technician No Cardiac Testing No Hx Pacemaker/ICD No Pacemaker Rep Required? No Cardiac Clearance Received No Diet Type At Home Regular Dysphagia No Gastrointestinal Symptoms Constipation,Diarrhea Bladder Pattern Incontinent, Stress Urinary Catheter Present No Hx Urinary Self Catheterization No Diabetes No Patient No Lactating No Hx Drug Resistant Organism No Presence of External or Internal Medical Yes: Right ankle, left knee, Devices radha eye IOLs, great toes Comment No covid symptoms x 8 weeks Marital Status Lives With none Current Living Arrangements House Number of Floors (Floors) One Floor Support System Sibling(s) Does the Patient Have Assistance After Yes: Brother and will Surgery stay with pt to assist with care at NH Patient Discharge Plan Description Return Home Comment Pt advised possible overnight length of stay if needed per surgeon Feels Safe in Current Environment Yes Been Physically Hurt or Threatened By a No Person in Current Environment Do you have thoughts of harming yourself None or others? Are you currently considering suicide? No Do you have a plan to hurt yourself or No Plan others? Do You Have Any Spiritual Beliefs That No May Affect Your HC Choices? Do You Have Any Cultural Practices That No May Affect Your HC Choices? Comment Sabianist Who Can We Speak to About Patient's Care Family, friends Identifying Code for Release of Patient Declines to issue Information Health Care Proxy/Next of Kin Ca Navarrete (sister in- law) Health Care Proxy Emergency Contact Name Tre (daughter) Emergency Contact Advance Directives? Yes Advance Directives on File No Requested Patient Bring Advanced Yes Directives DOS Power of Office Machine Technician No PAC Instructions Assistance for 24 hours post- op,Do not shave/clip surgical site,Durable medical equipment ,Medications to take/avoid, Nasal antibiotic,No ETOH/ petroleum product on skin DOS, NPO,Post-op transportation,Pre -surgical wash,Sturdy shoes/ comfortable clothes,Do not bring valuables and remove jewelry
--- NOTE | 2024-02-24 12:20 | OT.IP.EVAL ---
Addendum entered and electronically signed by Sarita Castillo OT 02/24/24 13:01: esign Original Note: Current Diagnoses Unilateral primary osteoarthritis, right knee (02/23/24) Unspecified dislocation of right patella, subsequent encounter (02/23/24) Surgery Performed Operation Date: 02/23/24 08:45 Actual Procedures p Total Knee Arthroplasty - Robot(Right) - Marni Marquez MD Past Medical History (Last Updated 02/14/24 @ 09:29 by Deirdre Tineo RN) Anesthesia complication Depression Diverticulosis Eczema History of COVID-19 (~2020) Mild aortic stenosis Osteoarthritis Surgical History (Last Updated 02/14/24 @ 09:29 by Deirdre Tineo RN) History of ankle surgery (2023) History of bunionectomy of both great toes History of total left knee replacement (~2016) Hx of bilateral cataract extraction (2023) Hx of cholecystectomy (~2000) Hx of LASIK Hx of lithotripsy Hx of tonsillectomy Occupational Therapy Inpatient Evaluation/Re-Eval M1 PT/OT-IP Prior Functional Status Start: 02/23/24 16:49 Freq: NEEDED Status: Active Protocol: Document 02/24/24 12:48 [facility] (Rec: 02/24/24 12:57 [facility] [id number]) Medical Review Prior Functional Status Medical History Reviewed Yes Communication able to make needs known Mobility and Gait pt stated that she was indpendent with all mobilities and ambulation without AD Activities of Daily Living and IADL's Pt states was independent with all ADl and IADL needs. Social History Household Members none Living Arrangements House Number of Floors (Floors) One Floor Number of Stairs To Enter/Railing? 7 steps wide bilateral rails to enter and can only hold on to one rail at a time Home Environment Standard Height Toilet,Walk in Shower,Built-In Shower Seat Home Equipment Front Wheel Walker,Raised Toilet Seat Without Armrests, Hand Held Shower,Grab Bars In Shower Additional Social History Comment pt's brother and [id number] plans to stay with pt to assist as long as needed. pt's [id number] will be assisting pt M2 OT-IP Current Condition Start: 02/24/24 12:46 Freq: Status: Active Protocol: Document 02/24/24 12:48 [facility] (Rec: 02/24/24 12:57 [facility] [id number]) Occupational Therapy Current Condition Current Condition Evaluation Date 02/24/24 Treatment Diagnosis S/P R TKA Diagnosis Onset Date 02/23/24 M3 OT- IP Subjective and Pain Start: 02/24/24 12:46 Freq: Status: Active Protocol: Document 02/24/24 12:48 [facility] (Rec: 02/24/24 12:57 [facility] [id number]) OT- Subjective Occupational Therapy Visit Type Type Initial Evaluation Visit Start Time 11:54 Visit Stop Time 12:20 Occupational Therapy Visit Comments Patient Comments Pt not wanting to get up at this time but agreed to do OT eval and go over OT needs. Patient/Caregiver Goals To go home and have home health. OT Pain Assessment Pain When Pain Assessed At Rest Pain Present Pain Present Pain Reported Location Right Knee Intensity 5 Scale Used Numeric (0 - 10) M4 OT- IP ADL's Start: 02/24/24 12:46 Freq: Status: Active Protocol: Document 02/24/24 12:48 [facility] (Rec: 02/24/24 12:57 [facility] [id number]) OT [id number] General Evaluation Self-Feeding Ability Independent OT ADL-Grooming Comments OT Grooming Comments Not performed. OT ADL-Oral Care Comments Oral Care Comments Not performed. OT ADL-Dressing General Eval Lower Body Dressing Ability Minimal Assistance Areas Needing Assistance Socks Comments OT Dressing Comments Showed and practiced LB dressing equipment. Educated to dress the RLE first and take out last. OT ADL-Toileting Comments OT Toileting Comments Suggested pt get a BSC and use of pads at night. Also to be mindful of her knee positioning needs while wiping . OT ADL-Bathing Comments OT Bathing Comments Pt will benefit from a shower chair. M5 OT- IP IADL's Start: 02/24/24 12:46 Freq: Status: Active Protocol: Document 02/24/24 12:48 [facility] (Rec: 02/24/24 12:57 [facility] [id number]) OT-Instrumental Activities of Daily Living Home Safety Awareness Awareness of Need for Assistance at Home Good Awareness Ability to Problem Solve Emergency Able to Problem Solve Situations Medication Management Medication Management Comments Pt did prior. Money Management Money Management Comments Pt did prior. Meal Preparation Meal Preparation Comments Pt to have assist. Senior Salesforce Developer Senior Salesforce Developer Comments Pt to have assist. Driving Driving Comments Pt realizes not to drive and to ask the surgeon when she is able to drive. M6 OT- IP Functional Cognition Start: 02/24/24 12:46 Freq: Status: Active Protocol: Document 02/24/24 12:48 [facility] (Rec: 02/24/24 12:57 [facility] [id number]) Cognitive Factors Limiting Selfcare Function Cognitive Ability Level of Alertness Alert Patient Orientation Name,Age,Birthday,Month,Date, Year,Day of Week,Place, Situation Attention Span Ability Capable of Focused Attention, Capable of Sustained Attention Ability to Follow Commands Able to Follow One Step Commands Cognitive Comments Cognitive Assessment Comments Pt able to follow commands for ADL needs. OT- Vision and Hearing OT- Hearing Assessment OT- Hearing Assessment WFL OT- Vision Assessment Visual Acuity Glasses For Reading Visual Attentiveness WFL Occular Pursuits WFL M7 OT- IP Mobility and Balance Start: 02/24/24 12:46 Freq: Status: Active Protocol: Document 02/24/24 12:48 [facility] (Rec: 02/24/24 12:57 [facility] [id number]) OT- Bed Mobility Assessment Supine to Sit Supine to Sit Assist Standby Assistance OT- Balance Assessment Sitting Balance and Reactions Static Sitting Balance Ability Normal Dynamic Sitting Balance Ability Good M8 OT- IP Objective Assessments Start: 02/24/24 12:46 Freq: Status: Active Protocol: Document 02/24/24 12:48 [facility] (Rec: 02/24/24 12:57 [id number] Gross Range of Motion Upper Extremity Range of Motion Assessment Within Functional Limits OT Strength Upper Extremity Strength Assessment Right Impaired M9 OT- IP Assessment and Plan Start: 02/24/24 12:46 Freq: Status: Active Protocol: Document 02/24/24 12:48 [facility] (Rec: 02/24/24 12:57 [facility] [id number]) OT Summary Assessment and Plan Potential Rehabilitation Potential Excellent Analytic Complexity at Evaluation Low Summary OT Impairments Pain,Strength,Balance, Functional Mobility,Dressing, Toileting,Bathing,Toilet Transfers,Shower Transfers Progress Towards Goals Progressing Toward Goals Assessment Summary Pt low complexity and main barrier are pain,steps and to have her family stay to assist her at home and looking to have home health initially. Pt will benefit from getting a BSC, shower chair and sock aid to use at home. Goals Grooming Goal Independent Dressing Goal Independent,Long Handled Shoe Horn,Negative Restorer,Sock Aid Toileting Goal Independent Bathing Goal Standby Assistance Toilet Transfer Goal Independent Shower Transfer Goal Independent Days to Meet Goals 5 Frequency of Treatment Other frequency 5x/week Treatment Plan OT Treatment Plan ADL Training,Functional Mobility,Patient/Family Education,Discharge Planning Discharge Recommendations OT Discharge Recommendations Home with 31/08 Assist Available,Home Health Home Equipment Needs BSC, shower chair, sock aid Transportation Needs at Discharge Private Vehicle
== END 2024-02-24 14:35 | disposition home or self-care (01) ==
LOC: OR 07:21 → AC 07:26
PROVIDERS: PCP Family Medicine; Referring Provider Orthopaedic Surgery Foot and Ankle Surgery; Visit Provider Orthopaedic Surgery Foot and Ankle Surgery
PROC: 0SRC0JZ Replacement of Right Knee Joint with Synthetic Substitute, Open Approach (ICD-10-PCS; CPT 27447; principal; 2024-02-23 08:45)
DX: M17.11 Unilateral primary osteoarthritis, right knee (principal); S83.004D Unspecified dislocation of right patella, subsequent encounter; I10 Essential (primary) hypertension; E66.9 Obesity, unspecified; Z68.37 Body mass index [BMI] 37.0-37.9, adult; Z87.891 Personal history of nicotine dependence
CPT/HCPCS: 27447; 20985; 36415; 64450; 73560; 85014; 85018; 97116; 97162; 97165; 97530; 97535; C1776; A9270; C1713; J0666; J0690; J1100; J1171; J2060; J2250; J2405; J2704; J3010